=== PATIENT | female | born 1995 | race Caucasian/White ===

== ENCOUNTER 2018-04-24 19:04 | Inpatient (IN) | payer OTHER, MEDICAID, SELFPAY ==
[2018-04-24 19:30] VITALS: BMI 45.8
[2018-04-24] MEDS: 0.9% Saline Lock 10 ML Syringe IV (19:45)
[2018-04-24 20:18] LABS: Hematocrit 31.8 % (37-47); Hemoglobin 10.6 g/dl (12.0-15.0); Mean Corp Hgb Conc 33.3 g/gl (32-36); Mean Corpuscular Volume 87.1 fL (81-99); Mean Platelet Vol. 10.6 fl (6.2-12.0); Platelet Count 295 K/mm3 (150-450); RBC Distribution Width CV 13.6 % (11.6-14.6); RBC Distribution Width SD 43.6 fl (35.1-43.9); Red Blood Count 3.65 M/mm3 (4.2-5.4); White Blood Count 12.6 K/mm3 (4.4-11.0)
[2018-04-24] MEDS: miSOPROStol 25 MCG TABLET PO (20:21)
[2018-04-24 20:22] LABS: Scan Indicated on CBC? Y/N NO
[2018-04-25] MEDS: miSOPROStol 25 MCG TABLET PO (00:23)
[2018-04-25] MEDS: Lactated Ringers 1,000 ML 50 ML IV ×3 (05:17→16:40)
[2018-04-25] MEDS: Oxytocin 30 units/NS 500 ml 30 UNITS/500 ML IV.SOLN IV (05:22)
[2018-04-25 08:17] LABS: Amphetamine Urine VISTA NEGATIVE (<1000 ng/mL); Barbiturate Urine VISTA NEGATIVE (< 200 ng/mL); Benzodiazepine Urine VISTA NEGATIVE (< 200 ng/mL); Cocaine Urine VISTA NEGATIVE (< 300 ng/mL); Ecstacy Urine VISTA NEGATIVE (< 500 ng/mL); Methadone Urine VISTA NEGATIVE (< 300 ng/mL); PCP Urine VISTA NEGATIVE (< 25 ng/mL); THC Urine VISTA POSITIVE (< 50 ng/mL); Vista UDS pH Range 6
[2018-04-25] MEDS: Nalbuphine 10 MG/ML Ampul IV (11:05)
[2018-04-25] MEDS: fentaNYL-bupivacaine (epidural) 100 ML BAG EPIDURAL ×2 (14:28→18:40)
--- NOTE | 2018-04-25 18:45 | PCM.PN.BLA ---
Progress Note LABOR PROGRESS NOTE Late entry from approx 11:45 check A little more comfortable with Nubain just given. Tried Nitrous but not helpful. Not ready for epidural by this check. EFM reassuring 120-130s with accels. Variables noted to 90 but short duration UCs appear adequate. CX: 4-5 / 90 / -2 caput noted very narrow arch, and much soft tissue. ? adequacy of pelvis A/P: 41 1/7 wk cytotec to pitocin AROM this am. Continue labor induction. watch progress, descent.
--- NOTE | 2018-04-25 18:48 | PCM.PN.BLA ---
Progress Note LABOR PROGRESS NOTE LATE entry from rounding, check approx 17:00 Comfortable then with epidural. Sitting high fowlers AVSS Pitocin at 12 mIU/min CX 7.5/100/-1 per RN check then IFM: 130-140s with accels. periods of hypervariability. Deep variable decels to 80-90s lasting under 20 sec UCs q 2-4 min but appear inadequate by mVUs A/P: 41 1/7 wk induction of labor Cytotec to pitocin, AROM this AM approx 0820. Progress to 7.5 very borderline pelvis with narrow arch, much soft tissue. Continue pitocin Watch tolerance of labor. Watch continued progress, descent.
[2018-04-25] MEDS: Oxytocin 30 units/NS 500 ml 30 UNITS/500 ML IV.SOLN 334 UNITS IV (20:09)
--- NOTE | 2018-04-25 20:23 | PCM.OB.VAG ---
Vaginal Delivery Maternal Presentation: Medically Indicated Induction Method of Induction: Cervidil, Pitocin Amniotic Membrane Rupture Type: Artificial Amniotic Fluid Description: Clear Final BENNY: 04/17/18 Gestational age: 41 Weeks and 1 Days Date of Procedure: 04/25/18 Pre-Operative Diagnosis: 41 1/7 wk induction postdates Post-Operative Diagnosis: same Surgery/ Procedure Performed: Spontaneous Vaginal Delivery Type of Anesthesia: Epidural Description of Procedure: Induction of labor at 41 + wks. Cytotec, to pitocin AROM. Epidural placed per pt request after trial of nitrous oxide and Nubain Progressed to complete and pushing. of a contreras viable male, over intact perineum to lacerations. Head delivered KENTRELL. Nuchal cord x one reduced. Delivery followed immediately by shoulders which delivering spontaneously. Infant to maternal abdomen after bulb suctioning OP and nares. Cord clamped x two and cut. Routine cord blood for typing and Arterial and venous cord gas collected. PP exam: bilateral anterior labial lacerations, 1st deg, hemostatic and not repaired. 2nd deg posterior vaginal and perineal laceration repaired under epidural and 1% lidocaine local to hemostatic and intact with 3-0 vicryl. No other lacerations Placenta delivered by spont expulsion, expression. 3V cord normal appearing and intact with trailing membranes. EBL 350 cc Pt and tolerated delivery well. To recovery, stable condition. Ray jackie counts correct x two. Presentation: Vertex Placental Delivery Description: Spontaneous, Expressed Placenta Disposition: [facility] Cord Vessel Description: 3 Vessels Nuchal Cord Compression: Without compression Cord Gases drawn per routine: ABG, VBG Cord Entanglement: Around neck x 1, loose Estimated Blood Loss: 350 (1 minute): 8 (5 minute): 9 Episiotomy Description: None Laceration: Midline, Perineal Extension/lac, Vaginal Extension/lac, 1st degree - bilateral anterior labial lacerations, 1st deg, hemostatic and not repaired. Medications given after delivery: IV Pitocin Complications: None
--- NOTE | 2018-04-25 20:34 | DCINST_ITS ---
Discharge Diet: No Restrictions Discharge Activity: May Shower, May Take a Tub Bath May resume sexual activity in: 4-6 weeks Additional Activity Instructions:: Nothing in the vagina for 4-6 weeks. You may return to work/school in 6 weeks. Additional Instructions: If you experience any of the following, contact your healthcare provider. * Bleeding that soaks a pad every hour for 2 hours * Fever 100.4 or higher * Unrelieved abdominal pain * Problems urinating (including inability to urinate or burning while urinating). * Visual changes * Severe headache * Flu-like symptoms * Pain or redness in one of both of your breasts * Pain, warmth, tenderness or swelling in your legs, especially the calf area * Frequent nausea and vomiting * Symptoms of depression or anxiety If you experience any of the following, call 911 or go to the nearest Emergency Room. * Chest pain * Problems breathing * Seizure activity * Partial or complete paralysis of a body part, slurred speech, weakness or drooping of the face, or a sudden inability to walk or hold your balance Allergies/Adverse Reactions: Allergies Penicillins [PCN] Allergy (Intermediate, Verified 04/24/18 19:53) Hives Medications to take at Discharge Aspirin [Aspir 81] 81 mg PO DAILY 04/24/18 Docosahexanoic Acid [ Dha] 200 mg PO DAILY 04/24/18 Please Follow Up With: Ayde Fernando MD - [phone] When: Call to make an appointment with your doctor in 6 weeks. Test Results: Test results from this visit will be discussed in further detail at your follow- up appointment, if applicable. Proposed Discharge Date: 04/27/18
--- NOTE | 2018-04-25 20:34 | PCM.DCVAG ---
Discharge Diet: No Restrictions Discharge Activity: May Shower, May Take a Tub Bath May resume sexual activity in: 4-6 weeks Additional Activity Instructions:: Nothing in the vagina for 4-6 weeks. You may return to work/school in 6 weeks. Additional Instructions: If you experience any of the following, contact your healthcare provider. Bleeding that soaks a pad every hour for 2 hours Fever 100.4 or higher Unrelieved abdominal pain Problems urinating (including inability to urinate or burning while urinating). Visual changes Severe headache Flu-like symptoms Pain or redness in one of both of your breasts Pain, warmth, tenderness or swelling in your legs, especially the calf area Frequent nausea and vomiting Symptoms of depression or anxiety If you experience any of the following, call 911 or go to the nearest Emergency Room. Chest pain Problems breathing Seizure activity Partial or complete paralysis of a body part, slurred speech, weakness or drooping of the face, or a sudden inability to walk or hold your balance Allergies/Adverse Reactions: Allergies Penicillins [PCN] Allergy (Intermediate, Verified 04/24/18 19:53) Hives Medications to take at Discharge Aspirin [Aspir 81] 81 mg PO DAILY 04/24/18 Docosahexanoic Acid [ Dha] 200 mg PO DAILY 04/24/18 Please Follow Up With: Ayde Fernando MD - [phone] When: Call to make an appointment with your doctor in 6 weeks. Test Results: Test results from this visit will be discussed in further detail at your follow-up appointment, if applicable. Proposed Discharge Date: 04/27/18
[2018-04-25] MEDS: Oxytocin 30 units/NS 500 ml 30 UNITS/500 ML IV.SOLN 167 UNITS IV (20:39)
[2018-04-25] MEDS: 0.9% Saline Lock 10 ML Syringe IV (21:39)
[2018-04-26 00:45] VITALS: BP 118/62; PULSE 108; RESP 16; TEMP 36.8; O2SAT 96
[2018-04-26] MEDS: Senna/Docusate Sodium 1 Tablet PO (00:47)
[2018-04-26 04:20] VITALS: BP 140/78; PULSE 98; RESP 16; TEMP 36.7; O2SAT 94
[2018-04-26 08:00] VITALS: BP 119/58; PULSE 88; RESP 18; TEMP 36.8
--- NOTE | 2018-04-26 08:25 | PCM.PN.OB ---
Subjective: PPD#1 41 wk induction. Doing well. Minimal pain. Breast feeding, but still learning on this . Baby is doing well. Very happy Objective: Sitting up in bed, baby alert and on bed also - Physical Exam General: Alert, Oriented x3, Cooperative, No apparent distress HEENT: Atraumatic Neck: Supple Abdomen: Soft - fundus firm NT inferior to umbilicus Psych/Mental Status: Normal Affect Vital Signs Temp Pulse Resp BP Pulse Ox 98.1 F 98 16 140/78 H 94 04/26/18 04:20 04/26/18 04:20 04/26/18 04:20 04/26/18 04:20 04/26/18 04:20 Oxygen Delivery Method Room Air Weight: 129 kg Body Mass Index (BMI) 45.8 Intake and Output for Last 24 Hours 04/24/18 04/25/18 04/26/18 23:59 23:59 23:59 Intake Total 2233 / 2233 300 / 300 Output Total 1100 / 1100 500 / 500 Balance 1133 / 1133 -200 / -200 Medical Necessity - Tobacco Use Smoking Status: Current some day smoker Assessment/Plan PPD#1 Induction 41 wks. Stable postop Continue care. Assist with nursing prn. #2) positive tox screen. Marijuana . staff services manager consult for this, and mental health. Advised to stop marijuana which can affect her ability to body man correctly and provide needed care to her .
--- NOTE | 2018-04-26 08:28 | PN.OBGYN_ITS ---
Subjective: PPD#1 41 wk induction. Doing well. Minimal pain. Breast feeding, but still learning on this . Baby is doing well. Very happy Objective: Sitting up in bed, baby alert and on bed also - Physical Exam General: Alert, Oriented x3, Cooperative, No apparent distress HEENT: Atraumatic Neck: Supple Abdomen: Soft - fundus firm NT inferior to umbilicus Psych/Mental Status: Normal Affect Vital Signs Temp Pulse Resp BP Pulse Ox 98.1 F 98 16 140/78 H 94 04/26/18 04:20 04/26/18 04:20 04/26/18 04:20 04/26/18 04:20 04/26/18 04:20 Oxygen Delivery Method Room Air Weight: 129 kg Body Mass Index (BMI) 45.8 Intake and Output for Last 24 Hours 04/24/18 04/25/18 04/26/18 23:59 23:59 23:59 Intake Total 2233 / 2233 300 / 300 Output Total 1100 / 1100 500 / 500 Balance 1133 / 1133 -200 / -200 Medical Necessity - Tobacco Use Smoking Status: Current some day smoker Assessment/Plan PPD#1 Induction 41 wks. Stable postop Continue care. Assist with nursing prn. #2) positive tox screen. Marijuana . behavioral services tech consult for this, and mental health. Advised to stop marijuana which can affect her ability to scan coordinator correctly and provide needed care to her .
[2018-04-26] MEDS: Ibuprofen 600 MG Tablet PO (08:59)
[2018-04-26 12:45] VITALS: BP 117/52; PULSE 81; RESP 18; TEMP 36.6
--- NOTE | 2018-04-26 16:25 | CASEMGMT ---
Social Work Assessment Labor and Delivery Unit Date of Referral: 04/25/2018 Time of Referral: 2030 Referred By: Dr. Fernando Date of Intervention: 04/26/2017 Time of Intervention: 1625 Reason for Referral: maternal marijuana use, positive tox screen and mental health history History obtained from: mother of baby (MOB) and medical records Household composition: MOB and reported father of baby (FOB) currently live with MOB?s mother and MOB?s 19 year old sister. MOB reports home situation is safe and adequate. Patient's parent/guardian status: MOB Karina Campbell, a 20 year old single female, involved with reported FOB Wilian Webb, a 21 year old single male. MOB reports has been with FOB for a year and a half. MOB denies any form of abuse, control, or intimidation. [place] delivered this admission is the first child for both. is named, Omar Webb. Medical History: Medical History: MOB is G1, P0 to 1 after delivering . MOB reports started care in [place] where had been living, transferred care to [facility] [place] due to moving to [place] at about 30 weeks gestation. care once in [place] adequate and consistent appearing. Baby born weighing 7 pounds 4 ounces, Apgars 8 and 9 at 1 and 5 minutes of life respectively. Educational Status: MOB reports completed all but half of a credit of high school, walked with graduating class but did not get diploma. MOB reports to be able to read, write, and to understand what is read. Financial Status: MOB is not working, financially supported by FOB who works 2nd shift as a drill press operator for metal. MOB?s mother also assists. Supplies: MOB reports to have adequate supplies for baby including a car seat, crib for sleeping, clothing, diapers, wipes, and breast pump. MOB is planning to breast feed baby. Childcare/Caregiver(s): MOB Transportation: MOB denies any transportation issues. Programs/Agencies Involved: MOB reports to have medical insurance through [facility] and then to have WIC. MOB reports to be working with through the Health Department in [facility]. MOB declines a nurse visit or Help [facility] referral. Children Services/Legal Issues: None reported. MOB mentions during assessment that was on drug court as a teen for underage alcohol use. Behavioral Health Issues: Mental Health History: MOB reports long history of depression and anxiety, that did go to a counselor as a teen. MOB denies ever being on medication for such. MOB denies ever thinking of suicide, denies thoughts, plans, intent, or attempts. MOB reports during this did have a hard time with mood, more depressed than anxious, which MOB reports to be surprised about. MOB reports mood did improved over the last few weeks, and reports at this time to be feeling better and to be happy about the baby. Substance Use History: MOB reports social alcohol use as an adult, drinking on the weekends a couple of drinks, denies any abuse or dependence issues, and denies that anyone in MOB?s life has ever expressed concern about MOB?s drinking. MOB denies alcohol use during . MOB denies any history of use of heroin, cocaine, meth, or other narcotic prescription medications. MOB endorses use of a marijuana prior to and continued during . MOB reports use was reduced to about a ?bowl a day? during . MOB reports did quit use around 30 weeks for about a month or two, and then picked use back up. MOB admits that marijuana has helped MOB with depression and anxiety. MOB reports use during was mostly elated to help with appetite and sleep. MOB reports last use of marijuana was ?as few days ago? (prior to delivery). Family History: No discussion or reports of family history. Drug Screens: Maternal drug screen upon admission on 04-25-18 positive for marijuana. Urine for baby not collected yet at time of social work chart review. Meconium drug screen fro baby is pending. Family/Social Stressors: MOB moved during to be closer to own mother for more support and reduce bills. So while this is reported to be a positive change, it is a change nonetheless and could be a stressor. MOB admits to a low mood during , that did not feel well emotionally but endorses mood improvement during the last few weeks. MOB with continued use of illicit substance during the . MOB reports that decided to come be forthcoming about use as not being honest about use was creating more anxiety for MOB. Support Systems: MOB reports to have a large and adequate support system including FOB, MOB?s mother, sister, aunt, friend and other family members. MOB does report however that has been contemplating going to counseling as may be helpful to have outside support for stress and emotional health issues. Depression/Shaken Baby/Safe Sleeping: MOB able to give appropriate responses to shaken baby prevention. Educated MOB to safe sleeping. Educated MOB to risk factors, signs and symptoms of mood and anxiety disorders, as well as importance of accepting and seeking out support should symptoms arise. ? ASSESSMENT: Presented to MOB?s room. Multiple visitors present and MOB asked to speak to this group underwriter outside of the room. Met with MOB privately, introduced to self and role of socially responsible investment adviser. Also present social work international logistics manager Adriana Escobar. MOB pleasant, cooperative, and appearing to be forthcoming as evidenced by willingness to share how much marijuana MOB has been using during this . Though MOB appearing open and cooperative, MOB appearing to have anxious mood, only fair eye contact as was avoidant at times looking away from this group underwriter when speaking and intermittently making contact with this group underwriter. MOB rubbing hands on legs and fidgeting with clothing. MOB smiled at appropriate times, tearful when talking about marijuana use, as well as when talking about love that feels for the baby already. MOB reports intent to abstain from marijuana in the future, and that the OBGYN has discussed with MOB the importance of this. Educated MOB to importance of abstaining while breast feeding. MOB reports to have adequate support at home, though also discussed has been thinking of counseling for additional support should depression and anxiety surface in the period. MOB reports that while family is supportive, family may not always believe MOB about emotions or support MOB in regards to depression and anxiety. MOB reports that FOB is aware of marijuana usage, but does not smoke himself. MOB reports to have needed supplies to care for baby. MOB declines any referrals for supportive services such as [facility] or a nurse visit. MOB declines referrals for mental health or substance abuse counseling at this time, but accepting of information provided in case MOB changes mind down the road. MOB provided with packets on depression including online resources (MOB mentioned that likes to read blogs and find support online) and a [facility] packet. Safe Plan of Care for infant related to substance use: Addressed with MOB plan for safe care of baby should things change in the future and substance become an option for MOB. MOB report would not use around the baby, also reports (with social work prompting) that could leave baby with a sober person. MOB repots that FOB does not use marijuana as cannot due to job. MOB also reports that does not get high, does not feel impaired when using marijuana. Educated MOB to need for children services referral, educated to possible outcomes, and likelihood of follow up at home. MOB accepted this information without issue. PLAN: MOB and baby to home. Will be calling [facility]. MOB has been given community resource information as well as depression information. MOB voices agreement with plan. -SAVANA Chan, BLEACH SUPERVISOR
[2018-04-26 16:45] VITALS: BP 115/61; PULSE 77; RESP 16; TEMP 36.2
[2018-04-26 19:47] VITALS: BP 128/86; PULSE 86; RESP 18; TEMP 36.6; O2SAT 96
[2018-04-27 02:00] VITALS: BP 134/75; PULSE 72; RESP 16; TEMP 36.6; O2SAT 96
[2018-04-27] MEDS: Ibuprofen 600 MG Tablet PO (07:38)
[2018-04-27 07:40] VITALS: BP 127/74; PULSE 74; RESP 18; TEMP 36.4; O2SAT 97
--- NOTE | 2018-04-27 08:26 | PN.OBGYN_ITS ---
Subjective: PPD#2 41 wk induction Doing well. Breast feeding a little better. Plan to f/u with peds in [place]. Using ibuprofen prn for pain and this is effective. - Physical Exam General: Alert, Oriented x3, Cooperative, No apparent distress HEENT: Atraumatic Neck: Supple Abdomen: Soft - fundus firm NT at 1-2 cm inferior to umbilicus Neurological: Cranial nerves II-XII grossly intact Psych/Mental Status: Normal Affect Vital Signs Temp Pulse Resp BP Pulse Ox 97.5 F L 74 18 127/74 H 97 04/27/18 07:40 04/27/18 07:40 04/27/18 07:40 04/27/18 07:40 04/27/18 07:40 Oxygen Delivery Method Room Air Weight: 129 kg Body Mass Index (BMI) 45.8 Intake and Output for Last 24 Hours 04/25/18 04/26/18 04/27/18 23:59 23:59 23:59 Intake Total 2233 / 2233 300 / 300 Output Total 1100 / 1100 800 / 800 Balance 1133 / 1133 -500 / -500 Medical Necessity - Tobacco Use Smoking Status: Current some day smoker Assessment/Plan PPD#2 Induction 41 wks. Stable postop Dischg home today. RTO in 6 wk for check, prn sooner.
--- NOTE | 2018-04-27 10:30 | CASEMGMT ---
Social Work Labor and Delivery Chart reviewed and noted that baby's urine drug screen is back and positive for marijuana. Meconium is pending. Called [facility] services at [phone]. Spoke with Cynthia Márquez in the intake department. Referral given due to substance exposed . Brief maternal and histories provided. Cyntiha made aware of mom and baby discharging home today. No other social work nurse requested or indicated. Mother of baby given community resource information on day of initial social work assessment. MOB had declined any referrals to counseling, [facility], or nurse visit. -MICHAEL Chan, RESIDENTIAL SALES REPRESENTATIVE
== END 2018-04-27 11:40 | disposition home or self-care (01) | DRG 807 ==
PROVIDERS: Obstetrics & Gynecology; Admitting Provider Obstetrics & Gynecology; Visit Provider Obstetrics & Gynecology
DX: O48.0 Post-term pregnancy (principal); Z37.0 Single live birth; O70.0 First degree perineal laceration during delivery; O99.334 Smoking (tobacco) complicating childbirth; O69.81X0 Labor and delivery complicated by cord around neck, without compression, not applicable or unspecified; F12.929 Cannabis use, unspecified with intoxication, unspecified; Z3A.41 41 weeks gestation of pregnancy
CPT/HCPCS: 59050; 80307; 85027; 86850; 86900; 99218; J7120; A4216; G0378; J3490

== ENCOUNTER 2021-06-20 11:17 | Outpatient (CLI) | payer MEDICAID, SELFPAY ==
[2021-06-23 22:06] LABS: Chlamydia By Nucleic Acid AMP Negative (Negative)
[2021-06-24 11:36] LABS: Gonococcus By Nucleic Acid AMP Positive (Negative)
[2021-06-25 13:44] LABS: HPV Reflexed? NOT INDICATED
== END 2021-06-20 23:59 | disposition home or self-care (01) ==
PROVIDERS: Visit Provider Obstetrics & Gynecology
DX: Z12.4 Encounter for screening for malignant neoplasm of cervix (principal); Z11.3 Encounter for screening for infections with a predominantly sexual mode of transmission
CPT/HCPCS: 87491; 87591; 88175; G0145